=== PATIENT | male | born 1980 ===

== ENCOUNTER 2017-02-14 00:47 | Inpatient (IN) | payer MEDICAID ==
[2017-02-14 01:02] VITALS: BMI 31.9
[2017-02-14] MEDS ORDERED: Sodium Chloride 0.9% 1,000 ML IV STA (01:10)
[2017-02-14 01:30] LABS: BASO # 0.1 K/uL (0.0-0.2); BASO % 0.7 % (0.0-2.0); EOS # 0.2 K/uL (0.0-0.7); EOS % 1.5 % (0.0-4.0); HEMOGLOBIN 13.1 g/dL (12.0-18.0); LYMPH # 3.9 K/uL (1.0-4.3); LYMPH % 27.1 % (20.0-40.0); MEAN CELL VOLUME 79.6 fl (80.0-94.0); MEAN CORPUSCULAR HEMOGLOBIN 25.4 pg (27.0-31.0); MEAN CORPUSCULAR HGB CONC 31.9 g/dL (33.0-37.0); MEAN PLATELET VOLUME 8.2 fl (7.2-11.7); MONO # 1.3 K/uL (0.0-0.8); MONO % 9.1 % (0.0-10.0); NEUT # 8.9 K/uL (1.8-7.0); NEUT % 61.6 % (50.0-75.0); NRBC % 0.1 % (0.0-0.0); RBC 5.15 Mil/uL (4.40-5.90); RED CELL DISTRIBUTION WIDTH 13.7 % (11.5-14.5); WHITE BLOOD COUNT 14.5 K/uL (4.8-10.8)
--- NOTE | 2017-02-14 01:37 | ED PDOC ---
HPI: Abdomen Time Seen by Provider: 02/14/17 01:07 Chief Complaint (Nursing): Abdominal Pain Chief Complaint (Provider): nausea, vomiting, abdominal pain History Per: Patient History/Exam Limitations: no limitations Outside of [place] travel?: No Current Symptoms Are (Timing): Still Present Location Of Pain/Discomfort: RUQ, Epigastric Associated Symptoms: Nausea, Vomiting Additional History Per: Patient Additional Complaint(s): 36yo male with recent diagnosis of cholelithaisis, presents to ED with nausea, vomiting, abdominal pain for 2 hours. Patient states he ate rice, beans and pork tonight after which he experienced his symptoms. Patient reports severe abdominal pain, 2 episodes of non-bloody, non-bilious vomiting. He states the abdominal pain is 10/10, mostly in his right upper quadrant and epigastric region, worse upon inhalation. he denies any fever, cough, shortness of breath, chest pain, diarrhea. No other complaints. Past Medical History Reviewed: Historical Data, Nursing Documentation, Vital Signs Vital Signs: Last Vital Signs Temp 97.9 F 02/15/17 07:57 Pulse 82 02/15/17 07:57 Resp 19 02/15/17 07:57 BP 107/69 02/15/17 07:57 Pulse Ox 96 02/15/17 07:57 - Medical History Other PMH: cholelithiasis - Surgical History Surgical History: No Surg Hx - Family History Family History: States: No Known Family Hx - Social History Current smoker - smoking cessation education provided: No Ex-Smoker (has not smoked in the last 12 months): No Alcohol: Occasional Drugs: Denies - Immunization History Hx Tetanus Toxoid Vaccination: No Hx Influenza Vaccination: No Hx Pneumococcal Vaccination: No - Home Medications Home Medications: Ambulatory Orders Medication Instructions Recorded Ondansetron ODT [Zofran ODT] 4 mg PO TID PRN #6 odt 01/31/17 Amoxicillin/Clavulanate [Augmentin 1 tab PO Q12 #14 tab 02/15/17 875 MG-125 MG] Oxycodone HCl/Acetaminophen 1 tab PO Q4 PRN #30 tablet 02/15/17 [Percocet 7.5-325 mg Tablet] - Allergies Allergies/Adverse Reactions: Allergies Allergy/AdvReac Type Severity Reaction Status Date / Time No Known Allergies Allergy Unverified 02/14/17 01:02 Review of Systems ROS Statement: Except As Marked, All Systems Reviewed And Found Negative Constitutional: Negative for: Fever Cardiovascular: Negative for: Chest Pain Respiratory: Negative for: Cough, Shortness of Breath Gastrointestinal: Positive for: Nausea, Vomiting, Abdominal Pain. Negative for : Diarrhea Physical Exam - Reviewed Nursing Documentation Reviewed: Yes Vital Signs Reviewed: Yes - Physical Exam Appears: Positive for: Uncomfortable Head Exam: Positive for: ATRAUMATIC, NORMAL INSPECTION, NORMOCEPHALIC Skin: Positive for: Normal Color Eye Exam: Positive for: Normal appearance Neck: Positive for: Supple Cardiovascular/Chest: Positive for: Regular Rate, Rhythm Respiratory: Positive for: Normal Breath Sounds. Negative for: Respiratory Distress Gastrointestinal/Abdominal: Positive for: Soft, Tenderness (epigastric, right upper quadrant tenderness, + Vences's sign.) Back: Positive for: Normal Inspection Extremity: Positive for: Normal ROM Neurologic/Psych: Positive for: Alert, Oriented. Negative for: Motor/Sensory Deficits - Laboratory Results Result Diagrams: 02/15/17 05:30 02/15/17 05:30 - ECG O2 Sat by Pulse Oximetry: 97 (RA) Pulse Ox Interpretation: Normal Medical Decision Making Medical Decision Making: Time: 107 Impression: 36yo male with right upper quadrant tenderness and pain, nausea and vomiting in setting of known cholelithiasis Plan: -- CT Abdomen and Pelvis w/ IV Contrast -- IV FLuids -- Pepcid -- Toradol -- Zofran Reassess Time: 224 CT Abdomen IMPRESSION: Cholelithiasis, distended gallbladder, and small amount of adjacent fluid. Findings concerning for cholecystitis. Additional imaging with ultrasound or HIDA could be performed. Time: 242 Patient to be admitted under medicine associate professor of education, Dr. Ramírez for acute cholecystitis. Scribe Attestation: Documented by Zeenat Márquez acting as a scribe for Arthur Grady MD. Provider Attestation: All medical record entries made by the Scribe were at my direction and personally dictated by me. I have reviewed the chart and agree that the record accurately reflects my personal performance of the history, physical exam, medical decision making, and the department course for this patient. I have also personally directed, reviewed, and agree with the discharge instructions and disposition. Disposition - Clinical Impression Clinical Impression: Cholelithiasis - Patient ED Disposition Is Patient to be Admitted: Yes - Disposition Disposition Time: 02:44 Condition: STABLE
[2017-02-14 01:38] LABS: ALBUMIN 4.6 g/dL (3.5-5.0); ALT/SGPT 51 U/L (21-72); AST/SGOT 29 U/L (17-59); BLOOD UREA NITROGEN 21 mg/dl (9-20); CALCIUM 9.8 mg/dL (8.4-10.2); GFR AFRICAN-AMERICAN > 60; GFR NON-AFRICAN AMERICAN > 60; LIPASE 83 U/L (23-300)
[2017-02-14 01:39] LABS: ALB/GLOB RATIO 1.3 (1.0-2.1)
[2017-02-14] MEDS ORDERED: Sodium Chloride 0.9% 50 ML IV ONE (01:44)
[2017-02-14] MEDS ORDERED: Iohexol 300 100 ML IJ ONE (01:44)
--- NOTE | 2017-02-14 02:25 | CT ---
EXAM: CT Abdomen and Pelvis With Intravenous Contrast EXAM DATE/TIME: 02/14/2017 1:15 AM CLINICAL HISTORY: 36 years old, male; Pain; Abdominal pain; Localized; Right upper quadrant (ruq); Additional info: HX gall stones/pain TECHNIQUE: Axial computed tomography images of the abdomen and pelvis with intravenous contrast. All CT scans at this facility use one or more dose reduction techniques, viz.: automated exposure control; ma/kV adjustment per patient size (including targeted exams where dose is matched to indication; i.e. head); or iterative reconstruction technique. Coronal and sagittal reformatted images were created and reviewed. CONTRAST: 95 mL of [id number] administered intravenously. COMPARISON: No relevant prior studies available. FINDINGS: The gallbladder is dilated and there is a small amount of pericholecystic fluid. There are tiny areas of low attenuation in the gallbladder presumably nitrogen gallstones. The liver is normal. The spleen is normal. The pancreas is normal. No hydronephrosis or perinephric stranding. The bowel appears normal. A normal appendix is identified axial images 52 through 61, coronal images 56 through 60. IMPRESSION: Cholelithiasis, distended gallbladder, and small amount of adjacent fluid. Findings concerning for cholecystitis. Additional imaging with ultrasound or HIDA could be performed.
[2017-02-14] MEDS ORDERED: Piperacillin/Tazobact 3.375 GM in Sodium Chloride 0.9% 100 ML IV STA (02:28)
--- NOTE | 2017-02-14 02:56 | CP.PCM.HP ---
History of Present Illness - History of Present Illness History of Present Illness: PCP: None Chief Complaint: Abdominal Pain The Patient was seen and examined in the Ed HPI: 36 years old male with hx of Cholelithiasis Dx 2 weeks ago comes with 2 days of worsening RUQ pain radiating down to the RLQ and across to the LUQ and right back increasing after eating. The intensity was 10/10 and associated with nausea, vomits. No fever, cough, SOB, diarrhea nor urinary symptoms PMH: Cholelithiasis PSH: Denies SH: No illegal drug use; Smokes 2 packs in one week; Uses Alcohol socially FH: States: No Known Family Hx Allergies: NKDA Medication: Reviewed Present on Admission - Present on Admission Any Indicators Present on Admission: No History of DVT/PE: No History of Uncontrolled Diabetes: No Urinary Catheter: No Decubitus Ulcer Present: No Review of Systems - Constitutional Constitutional: absent: Anorexia, Fatigue, Fever, Headache, Sleep Apnea - EENT Eyes: absent: Diplopia, Floaters, Itchy Eyes, Loss of Peripheral Vision, Requires Corrective Lenses Ears: absent: Decreased Hearing, Ear Discharge, Other Nose/Mouth/Throat: absent: Epistaxis, Nasal Congestion, Nasal Discharge, Sinus Pain, Sinus Pressure - Cardiovascular Cardiovascular: absent: Chest Pain, Dyspnea, Edema - Respiratory Respiratory: absent: Cough, Dyspnea, Excessive Mucous Production - Gastrointestinal Gastrointestinal: Abdominal Pain, Nausea, Vomiting. absent: Bloating, Constipation, Diarrhea, Melena - Genitourinary Genitourinary: absent: Change in Urinary Stream, Dysuria, Flank Pain, Hematuria - Musculoskeletal Musculoskeletal: absent: Arthralgias, Back Pain, Muscle Cramps - Integumentary Integumentary: Pruritus, Rash, Skin Ulcer, Sores, Striae, Swelling - Neurological Neurological: absent: Confusion, Focal Weakness, Loss of Vision, Weakness - Psychiatric Psychiatric: absent: Anxiety, Depression, Panic Attacks - Endocrine Endocrine: absent: Palpitations, Polydipsia, Polyphagia, Polyuria - Hematologic/Lymphatic Hematologic: absent: Easy Bleeding, Easy Bruising Past Patient History - Past Social History Smoking Status: Current Some Days Smoker Chewing Tobacco Use: No Cigar Use: No Alcohol: Occasional Drugs: Denies - CARDIAC Hx Cardiac Disorders: No - PULMONARY Hx Respiratory Disorders: No - NEUROLOGICAL Hx Neurological Disorder: No - HEENT Hx HEENT Problems: No - RENAL Hx Chronic Kidney Disease: No - ENDOCRINE/METABOLIC Hx Endocrine Disorders: No - HEMATOLOGICAL/ONCOLOGICAL Hx Blood Disorders: No - INTEGUMENTARY Hx Dermatological Problems: No - MUSCULOSKELETAL/RHEUMATOLOGICAL Hx Musculoskeletal Disorders: No - GASTROINTESTINAL Hx Gastrointestinal Disorders: Yes Other/Comment: Cholelithiasis - PSYCHIATRIC Hx Psychophysiologic Disorder: No Hx Substance Use: No - SURGICAL HISTORY Hx Surgeries: No Meds Allergies/Adverse Reactions: Allergies Allergy/AdvReac Type Severity Reaction Status Date / Time No Known Allergies Allergy Unverified 02/14/17 01:02 Physical Exam - Constitutional Appears: No Acute Distress - Head Exam Head Exam: ATRAUMATIC, NORMAL INSPECTION, NORMOCEPHALIC - Eye Exam Eye Exam: EOMI, Normal appearance Pupil Exam: NORMAL ACCOMODATION, PERRL - ENT Exam ENT Exam: Mucous Membranes Moist, Normal Exam, Normal External Ear Exam - Neck Exam Neck exam: Positive for: Full Rom, Normal Inspection. Negative for: Lymphadenopathy, Tenderness - Respiratory Exam Respiratory Exam: Clear to Auscultation Bilateral. absent: Rales, Rhonchi, Wheezes - Cardiovascular Exam Cardiovascular Exam: REGULAR RHYTHM, RRR, +S1, +S2. absent: Gallop, JVD - GI/Abdominal Exam Additional comments: Full, Soft, +ve bowel sounds, tender at Epigastrium, RUQ and RLQ, No guarding nor rebound tenderness. - Rectal Exam Rectal Exam: Deferred - Extremities Exam Extremities exam: Positive for: full ROM, normal inspection. Negative for: calf tenderness, pedal edema - Back Exam Back exam: NORMAL INSPECTION. absent: CVA tenderness (L), CVA tenderness (R) - Neurological Exam Neurological exam: Alert, CN II-XII Intact, Oriented x3, Reflexes Normal - Psychiatric Exam Psychiatric exam: Normal Affect, Normal Mood - Skin Skin Exam: Dry, Intact, Normal Color, Warm Results - Vital Signs Recent Vital Signs: Last Vital Signs Temp 98.9 F 02/14/17 01:02 Pulse 78 02/14/17 01:02 Resp 16 02/14/17 01:02 BP 141/87 02/14/17 01:02 Pulse Ox 97 02/14/17 02:44 - Labs Result Diagrams: 02/14/17 01:27 02/14/17 01:27 Labs: Laboratory Results - last 24 hr 02/14/17 02/14/17 01:27 01:27 WBC 14.5 H RBC 5.15 Hgb 13.1 Hct 41.0 MCV 79.6 L MCH 25.4 L MCHC 31.9 L RDW 13.7 Plt Count 291 MPV 8.2 Neut % (Auto) 61.6 Lymph % (Auto) 27.1 [place] % (Auto) 9.1 Eos % (Auto) 1.5 Baso % (Auto) 0.7 Neut # 8.9 H Lymph # 3.9 [place] # 1.3 H Eos # 0.2 Baso # 0.1 Sodium 146 Potassium 4.3 Chloride 105 Carbon Dioxide 28 Anion Gap 17 BUN 21 H Creatinine 1.2 Est GFR ( Amer) > 60 Est GFR (Non-Af Amer) > 60 Random Glucose 126 H Calcium 9.8 Total Bilirubin 0.3 AST 29 ALT 51 Alkaline Phosphatase 79 Total Protein 8.3 H Albumin 4.6 Globulin 3.6 Albumin/Globulin Ratio 1.3 Lipase 83 - Imaging and Cardiology CT scan - abdomen Status: Report reviewed by me Additional comment: FINDINGS: The gallbladder is dilated and there is a small amount of pericholecystic fluid. There are tiny areas of low attenuation in the gallbladder presumably nitrogen gallstones. The liver is normal. The spleen is normal. The pancreas is normal. No hydronephrosis or perinephric stranding. The bowel appears normal. A normal appendix is identified axial images 52 through 61, coronal images 56 through 60. IMPRESSION: Cholelithiasis, distended gallbladder, and small amount of adjacent fluid. Findings concerning for cholecystitis. Additional imaging with ultrasound or HIDA could be performed. Assessment & Plan - Assessment and Plan (Free Text) Assessment: #. Acute cholecystitis #. Cholelithiasis #. Leukocytosis #. Dehydration Plan: 36 years old male with hx of Cholelithiasis Dx 2 weeks ago comes with 2 days of worsening RUQ pain radiating down to the RLQ and across to the LUQ and right back increasing after eating. The intensity was 10/10 and associated with nausea , vomits. No fever, cough, SOB, diarrhea nor urinary symptoms #. Acute cholecystitis with Cholelithiasis and biliary colic - Consult Dr Mukherjee general Surgeon - Hida scan - Zosyn - IV Fluids NS at 125/hr - Pain management with Toradol #. Leukocytosis secondary to the Cholecystitis - follow WBC #. Dehydration - IV fluids - follow Renal Labs #. Stress ulcer Prophylaxis with Pepcid #. DVT prophylaxis with SCD #. Code Status: Full - Date & Time Date: 02/14/17 Time: 02:56
[2017-02-14] MEDS: Sodium Chloride 0.9% 1,000 ML IV SCH ×3 (03:21→19:15)
[2017-02-14 03:32] LABS: URINE BILIRUBIN NEGATIVE (NEGATIVE); URINE BLOOD NEGATIVE (NEGATIVE); URINE CLARITY CLEAR (Clear); URINE COLOR YELLOW (YELLOW); URINE GLUCOSE (UA) NEG (Normal); URINE LEUKOCYTE ESTERASE NEG Leu/uL (Negative); URINE NITRATE NEGATIVE (NEGATIVE); URINE PROTEIN NEGATIVE (NEGATIVE); URINE UROBILINOGEN 0.2-1.0 mg/dL (0.2-1.0)
--- NOTE | 2017-02-14 08:25 | CARD ---
APPROVED REPORT EKG Measurement Heart [id number] <Conclusion> Normal sinus rhythm Minimal voltage criteria for LVH, may be normal variant Borderline ECG
--- NOTE | 2017-02-14 09:54 | CP.PCM.CON ---
History of Present Illness - History of Present Illness History of Present Illness: General Surgery Dr. Mukherjee 36 y/o M w/ PMHx of cholelithiasis, diagnosed 2weeks ago, presented to the ED c/o RUQ abd pain. Pt states pain has been present, off and on after eating for the last few months. However,pain was significantly worse last evening after dinner. Pain described as achy and cramping in RUQ w/ radiation in to (R) back. Pain was so severe, pt reports pre-syncopal episode. Pt reports concurrent nausea and multiple episodes NBNB vomiting. Pt admits to recent constipation for which he took laxative. Currenly, pt reports continued, though improved pain. Pt denies F/C, N/V, D/C. PMHx: denies Meds: multivitamin NKDA PSHx: L ear cyst excision SHx: 1pack per week, occasional EtOH, denies drug use FHx: Mother - cholelithiasis Review of Systems - Review of Systems All systems: reviewed and no additional remarkable complaints except (see HPI) Past Patient History - Past Medical History & Family History Past Medical History?: Yes - Past Social History Smoking Status: Light Smoker < 10 Cigarettes Daily - CARDIAC Hx Cardiac Disorders: No - PULMONARY Hx Respiratory Disorders: No - NEUROLOGICAL Hx Neurological Disorder: No - HEENT Hx HEENT Problems: No - RENAL Hx Chronic Kidney Disease: No - ENDOCRINE/METABOLIC Hx Endocrine Disorders: No - HEMATOLOGICAL/ONCOLOGICAL Hx Blood Disorders: No Hx AIDS: No Hx Human Immunodeficiency Virus (HIV): No - INTEGUMENTARY Hx Dermatological Problems: No - MUSCULOSKELETAL/RHEUMATOLOGICAL Hx Musculoskeletal Disorders: No Hx Falls: No - GASTROINTESTINAL Hx Gastrointestinal Disorders: Yes Hx Constipation: Yes Hx Hemorrhoids: Yes (June 2016) Other/Comment: Cholelithiasis - GENITOURINARY/GYNECOLOGICAL Hx Genitourinary Disorders: No - PSYCHIATRIC Hx Psychophysiologic Disorder: No Hx Substance Use: No - SURGICAL HISTORY Hx Surgeries: Yes Other/Comment: Incision of ichthyologist behind left ear at age 17 - ANESTHESIA Hx Anesthesia: Yes Hx Anesthesia Reactions: No Hx Malignant Hyperthermia: No Has any member of the family had a problem w/ anesthesia?: No Meds Allergies/Adverse Reactions: Allergies Allergy/AdvReac Type Severity Reaction Status Date / Time No Known Allergies Allergy Unverified 02/14/17 01:02 - Medications Medications: Current Medications Famotidine (Pepcid) 20 mg IVP Q12 [facility] Sodium Chloride (Sodium Chloride 0.9%) 1,000 mls @ 125 mls/hr IV .Q8H [facility] Stop: 02/15/17 03:12 Last Admin: 02/14/17 03:21 Dose: 125 mls/hr Piperacillin Sod/Tazobactam (Sod 3.375 gm/ Sodium Chloride) 100 mls @ 100 mls/ hr IVPB Q6 [facility] PRN Reason: Protocol Ketorolac Tromethamine (Toradol) 30 mg IVP Q6 PRN PRN Reason: Pain, severe (8-10) Ketorolac Tromethamine (Toradol) 15 mg IVP Q6 PRN PRN Reason: Pain, moderate (4-7) Ondansetron HCl (Zofran Inj) 4 mg IVP Q4 PRN PRN Reason: Nausea/Vomiting Physical Exam - Constitutional Appears: Non-toxic, No Acute Distress - Head Exam Head Exam: NORMAL INSPECTION - Eye Exam Eye Exam: Normal appearance - ENT Exam ENT Exam: Mucous Membranes Moist - Respiratory Exam Respiratory Exam: NORMAL BREATHING PATTERN. absent: Accessory Muscle Use, Respiratory Distress - Cardiovascular Exam Cardiovascular Exam: absent: Bradycardia, Tachycardia - GI/Abdominal Exam GI & Abdominal Exam: Soft, Tenderness (RUQ TTP). absent: Distended, Firm, Guarding, Rebound - Extremities Exam Extremities exam: Positive for: normal inspection - Neurological Exam Neurological exam: Alert, Oriented x3 - Psychiatric Exam Psychiatric exam: Normal Affect, Normal Mood - Skin Skin Exam: Dry, Intact, Normal Color, Warm Results - Vital Signs Recent Vital Signs: Last Vital Signs Temp 97.6 F 02/14/17 08:13 Pulse 70 02/14/17 08:13 Resp 18 02/14/17 08:13 BP 114/74 02/14/17 08:13 Pulse Ox 97 02/14/17 08:13 - Labs Result Diagrams: 02/14/17 01:27 02/14/17 01:27 Labs: Laboratory Results - last 24 hr 02/14/17 02/14/17 02/14/17 01:27 01:27 02:49 WBC 14.5 H RBC 5.15 Hgb 13.1 Hct 41.0 MCV 79.6 L MCH 25.4 L MCHC 31.9 L RDW 13.7 Plt Count 291 MPV 8.2 Neut % (Auto) 61.6 Lymph % (Auto) 27.1 [place] % (Auto) 9.1 Eos % (Auto) 1.5 Baso % (Auto) 0.7 Neut # 8.9 H Lymph # 3.9 [place] # 1.3 H Eos # 0.2 Baso # 0.1 Sodium 146 Potassium 4.3 Chloride 105 Carbon Dioxide 28 Anion Gap 17 BUN 21 H Creatinine 1.2 Est GFR ( Amer) > 60 Est GFR (Non-Af Amer) > 60 Random Glucose 126 H Lactic Acid Cancelled Calcium 9.8 Total Bilirubin 0.3 AST 29 ALT 51 Alkaline Phosphatase 79 Total Protein 8.3 H Albumin 4.6 Globulin 3.6 Albumin/Globulin Ratio 1.3 Lipase 83 Urine Color Urine Clarity Urine pH Ur Specific [place] Urine Protein Urine Glucose (UA) Urine Ketones Urine Blood Urine Nitrate Urine Bilirubin Urine Urobilinogen Ur Leukocyte Esterase Urine RBC (Auto) Urine Microscopic WBC 02/14/17 02/14/17 03:09 03:20 WBC RBC Hgb Hct MCV MCH MCHC RDW Plt Count MPV Neut % (Auto) Lymph % (Auto) [place] % (Auto) Eos % (Auto) Baso % (Auto) Neut # Lymph # [place] # Eos # Baso # Sodium Potassium Chloride Carbon Dioxide Anion Gap BUN Creatinine Est GFR ( Amer) Est GFR (Non-Af Amer) Random Glucose Lactic Acid 2.1 Calcium Total Bilirubin AST ALT Alkaline Phosphatase Total Protein Albumin Globulin Albumin/Globulin Ratio Lipase Urine Color Yellow Urine Clarity Clear Urine pH 6.0 Ur Specific [place] < 1.005 Urine Protein Negative Urine Glucose (UA) Neg Urine Ketones Negative Urine Blood Negative Urine Nitrate Negative Urine Bilirubin Negative Urine Urobilinogen 0.2-1.0 Ur Leukocyte Esterase Neg Urine RBC (Auto) 2 Urine Microscopic WBC < 1 - Imaging and Cardiology CT scan - abdomen Status: Image reviewed by me, Report reviewed by me US - abdomen Status: Image reviewed by me Assessment & Plan - Assessment and Plan (Free Text) Assessment: 36 y/o M w/ acute cholecystitis - cont NPO, IVF, Abx - Abd US shows acute cholecystitis - Pt for OR today for lap enrrique Pt discussed w/ Dr. Lonny Pichardo DO PGY2
[2017-02-14] MEDS ORDERED: ceFAZolin IV 1 gm in Dextrose 0 GM/0 ML BAG IVPB ONE (10:25)
[2017-02-14] MEDS ORDERED: Bupivacaine 0.5% Inj(30mL) ONE (10:25)
[2017-02-14] MEDS: Piperacillin/Tazobact 3.375 GM in Sodium Chloride 0.9% 100 ML IVPB SCH ×3 (10:36→21:41)
[2017-02-14] MEDS ORDERED: Phenylephrine 10 mg/ml Inj ONE (10:40)
[2017-02-14] MEDS ORDERED: Lidocaine 4% (Laryng-O-Jet) Kit MM ONE (10:40)
[2017-02-14] MEDS ORDERED: Rocuronium 10 mg/ml (5 ml) ONE (10:40)
[2017-02-14] MEDS ORDERED: Propofol 10 mg/ml Inj (20 ML) ONE (10:40)
[2017-02-14] MEDS ORDERED: Succinylcholine 200 mg/10 ml Inj IV ONE (10:40)
[2017-02-14] MEDS ORDERED: Lidocaine 2% MPF (5 ml) Inj ONE (10:42)
[2017-02-14] MEDS ORDERED: Dexamethasone 4 mg/1 ml ONE (10:44)
--- NOTE | 2017-02-14 11:23 | US ---
HISTORY: RUQ pain COMPARISON: Comparison is made to the previous same-day CT of the abdomen and pelvis with contrast. TECHNIQUE: Sonographic evaluation of the abdomen. FINDINGS: LIVER: Measures 13.2 cm. Normal echogenicity of the liver parenchyma. No mass. No intrahepatic bile duct dilatation. GALLBLADDER: Multiple gallstones are noted. There is a diffuse gallbladder wall thickening. There is a trace pericholecystic fluid. Findings suspicious for acute cholecystitis COMMON BILE DUCT: Measures 2.4 mm. No stones. No dilatation. PANCREAS: Unremarkable as visualized. No mass. No ductal dilatation. RIGHT KIDNEY: Measures 9.8 x 4.8 x 6.6cm. Normal echogenicity. No calculus, mass, or hydronephrosis. LEFT KIDNEY: Measures 10.9 x 6.7 x 4.6cm. Normal echogenicity. No calculus, mass, or hydronephrosis. SPLEEN: Normal in size and contour. No mass. AORTA: No aneurysmal dilatation. IVC: Unremarkable. OTHER FINDINGS: None. IMPRESSION: Distended gallbladder contains multiple gallstones and demonstrates diffuse wall thickening surrounding with trace pericholecystic fluid. Findings suspicious for acute cholecystitis. If clinically warranted further assessment by MRCP or hepatobiliary scan may be obtained.
[2017-02-14] MEDS ORDERED: Midazolam 2 MG/2 ML VIAL ONE (11:24)
[2017-02-14] MEDS ORDERED: Lactated Ringer's 1,000 ML IV ONE ×2 (11:30→11:50)
[2017-02-14] MEDS ORDERED: Sodium Chloride 0.9% 1,000 ML IV ONE (11:30)
[2017-02-14 11:34] LABS: INR 1.1 (0.9-1.2); PROTHROMBIN TIME 12.5 Seconds (9.8-13.1)
[2017-02-14] MEDS ORDERED: Neostigmine Methylsulfate 2 MG/2 ML ML IV ONE ×2 (12:01→12:33)
[2017-02-14] MEDS ORDERED: Neostigmine Methylsulfate 3mg/3ml Syringe IV ONE (12:01)
[2017-02-14] MEDS ORDERED: HYDROmorphone 0.5 mg/0.5 ml ISec IVP PRN (13:04)
--- NOTE | 2017-02-14 13:23 | PCM.SURG1 ---
Surgeon's Initial Post Op Note - Surgeon's Notes Surgeon: Dr. Mukherjee Pharmacy Resident: Dr. Kylee Beatty PGY2 Type of Anesthesia: General Endo Pre-Operative Diagnosis: acute cholecystitis Operative Findings: see dictation Post-Operative Diagnosis: same Operation Performed: laparoscopic cholecystectomy Specimen/Specimens Removed: gallbladder Estimated Blood Loss: EBL {In ML}: 100 Post-Op Condition: Good Date of Surgery/Procedure: 02/14/17 Time of Surgery/Procedure: 11:25
[2017-02-14] MEDS: Lactated Ringer's 1,000 ML IV SCH ×2 (14:25→23:35)
[2017-02-15] MEDS ORDERED: Oxycodone/Acetaminophen 5/325 mg Tab PO PRN (00:21)
[2017-02-15] MEDS: Piperacillin/Tazobact 3.375 GM in Sodium Chloride 0.9% 100 ML IVPB SCH ×2 (04:25→09:17)
[2017-02-15 07:41] LABS: BASO % 0.3 % (0.0-2.0); EOS # 0.1 K/uL (0.0-0.7); EOS % 0.6 % (0.0-4.0); HEMOGLOBIN 11.4 g/dL (12.0-18.0); LYMPH # 2.5 K/uL (1.0-4.3); LYMPH % 15.9 % (20.0-40.0); MEAN CELL VOLUME 79.4 fl (80.0-94.0); MEAN CORPUSCULAR HEMOGLOBIN 25.5 pg (27.0-31.0); MEAN CORPUSCULAR HGB CONC 32.1 g/dL (33.0-37.0); MEAN PLATELET VOLUME 8.9 fl (7.2-11.7); MONO # 1.1 K/uL (0.0-0.8); MONO % 7.2 % (0.0-10.0); RBC 4.45 Mil/uL (4.40-5.90); RED CELL DISTRIBUTION WIDTH 13.8 % (11.5-14.5); WHITE BLOOD COUNT 15.8 K/uL (4.8-10.8)
[2017-02-15 07:58] VITALS: BP 107/69; PULSE 82; RESP 19; TEMP 97.9
[2017-02-15 07:58] LABS: BLOOD UREA NITROGEN 17 mg/dl (9-20); CALCIUM 8.7 mg/dL (8.4-10.2); GFR AFRICAN-AMERICAN > 60; GFR NON-AFRICAN AMERICAN > 60
--- NOTE | 2017-02-15 08:40 | CP.PCM.DIS ---
Provider - Provider Date of Admission: 02/14/17 02:37 Attending physician: Lino Ramírez Primary care physician: none Consults: Surgery consult Time Spent in preparation of Discharge (in minutes): 15 Hospital Course - Lab Results Lab Results: Micro Results 02/14/17 03:04 Blood Blood Culture - Preliminary NO GROWTH AFTER 24 HOURS Most Recent Lab Values WBC 15.8 K/uL (4.8-10.8) H 02/15/17 05:30 RBC 4.45 Mil/uL (4.40-5.90) 02/15/17 05:30 Hgb 11.4 g/dL (12.0-18.0) L 02/15/17 05:30 Hct 35.3 % (35.0-51.0) 02/15/17 05:30 MCV 79.4 fl (80.0-94.0) L 02/15/17 05:30 MCH 25.5 pg (27.0-31.0) L 02/15/17 05:30 MCHC 32.1 g/dL (33.0-37.0) L 02/15/17 05:30 RDW 13.8 % (11.5-14.5) 02/15/17 05:30 Plt Count 248 K/uL (130-400) 02/15/17 05:30 MPV 8.9 fl (7.2-11.7) 02/15/17 05:30 Neut % (Auto) 76.0 % (50.0-75.0) H 02/15/17 05:30 Lymph % (Auto) 15.9 % (20.0-40.0) L 02/15/17 05:30 [place] % (Auto) 7.2 % (0.0-10.0) 02/15/17 05:30 Eos % (Auto) 0.6 % (0.0-4.0) 02/15/17 05:30 Baso % (Auto) 0.3 % (0.0-2.0) 02/15/17 05:30 Neut # 12.0 K/uL (1.8-7.0) H 02/15/17 05:30 Lymph # 2.5 K/uL (1.0-4.3) 02/15/17 05:30 [place] # 1.1 K/uL (0.0-0.8) H 02/15/17 05:30 Eos # 0.1 K/uL (0.0-0.7) 02/15/17 05:30 Baso # 0.0 K/uL (0.0-0.2) 02/15/17 05:30 PT 12.5 Seconds (9.8-13.1) 02/14/17 11: INR 1.1 (0.9-1.2) 02/14/17 11: APTT 34.3 Seconds (25.6-37.1) 02/14/17 11: Sodium 141 mmol/l (132-148) 02/15/17 05:30 Potassium 4.0 MMOL/L (3.6-5.0) 02/15/17 05:30 Chloride 107 mmol/L (98-107) 02/15/17 05:30 Carbon Dioxide 28 mmol/L (22-30) 02/15/17 05:30 Anion Gap 10 (10-20) 02/15/17 05:30 BUN 17 mg/dl (9-20) 02/15/17 05:30 Creatinine 1.1 mg/dl (0.8-1.5) 02/15/17 05:30 Est GFR ( Amer) > 60 02/15/17 05:30 Est GFR (Non-Af Amer) > 60 02/15/17 05:30 Random Glucose 128 mg/dL (75-110) H 02/15/17 05:30 Lactic Acid 2.1 MMOL/L (0.7-2.1) 02/14/17 03:09 Calcium 8.7 mg/dL (8.4-10.2) 02/15/17 05:30 Total Bilirubin 0.3 mg/dl (0.2-1.3) 02/14/17 01:27 AST 29 U/L (17-59) 02/14/17 01:27 ALT 51 U/L (21-72) 02/14/17 01:27 Alkaline Phosphatase 79 U/L (38-126) 02/14/17 01:27 Total Protein 8.3 G/DL (6.3-8.2) H 02/14/17 01:27 Albumin 4.6 g/dL (3.5-5.0) 02/14/17 01:27 Globulin 3.6 gm/dL (2.2-3.9) 02/14/17 01:27 Albumin/Globulin Ratio 1.3 (1.0-2.1) 02/14/17 01:27 Lipase 83 U/L (23-300) 02/14/17 01:27 Urine Color Yellow (YELLOW) 02/14/17 03:20 Urine Clarity Clear (Clear) 02/14/17 03:20 Urine pH 6.0 (5.0-8.0) 02/14/17 03:20 Ur Specific [place] < 1.005 (1.003-1.030) 02/14/17 03:20 Urine Protein Negative mg/dL (NEGATIVE) 02/14/17 03:20 Urine Glucose (UA) Neg mg/dL (Normal) 02/14/17 03:20 Urine Ketones Negative mg/dL (NEGATIVE) 02/14/17 03:20 Urine Blood Negative (NEGATIVE) 02/14/17 03:20 Urine Nitrate Negative (NEGATIVE) 02/14/17 03:20 Urine Bilirubin Negative (NEGATIVE) 02/14/17 03:20 Urine Urobilinogen 0.2-1.0 mg/dL (0.2-1.0) 02/14/17 03:20 Ur Leukocyte Esterase Neg [place]/uL (Negative) 02/14/17 03:20 Urine RBC (Auto) 2 /hpf (0-3) 02/14/17 03:20 Urine Microscopic WBC < 1 /hpf (0-5) 02/14/17 03:20 - Hospital Course Hospital Course: 36 years old male with hx of Cholelithiasis Dx 2 weeks ago came in with 2 days of worsening RUQ pain radiating down to the RLQ and across to the LUQ and right back increasing after eating. The intensity was 10/10 and associated with nausea, vomits. No fever, cough, SOB, diarrhea nor urinary symptoms. Patient had a WBC elevated 14 K. Abdominal US showed Cholelithiasis, distended gallbladder, and small amount of adjacent fluid. Findings concerning for cholecystitis. Abd US showed ;Distended gallbladder contains multiple gallstones and demonstrates diffuse wall thickening surrounding with trace pericholecystic fluid. Findings suspicious for acute cholecystitis Patient was admitted with diagnosis of acute cholecystitis started on IV Zosyn, IVF , pain medication and kept NPO. Surgery was consulted and patient taken to OR . He underwent laparascopic Cholecystectomy. Post op doing well, tolerating PO intake, hemodynamically stable, afebrile ,pain resolved. Discussed with surgery.Will discharge patient home on PO Augmentin for 1 week and Percoset PRN for pain. Patient informed on side effects of Percoset like drowsiness, sedation and advised to avoid driving or operating heavy machinery. He will follow up with Dr. Wilkins in 1 week for post op follow up . 1. Acute cholecystitis with Cholelithiasis and biliary colic 2. s/p laparascopic cholecystectomy 3. Leukocytosis secondary to the Cholecystitis 4. Dehydration- given IVF , resolved Discharge Exam - Head Exam Head Exam: ATRAUMATIC, NORMAL INSPECTION, NORMOCEPHALIC - Eye Exam Eye Exam: EOMI, Normal appearance, PERRL Pupil Exam: NORMAL ACCOMODATION - ENT Exam ENT Exam: Mucous Membranes Moist, Normal Exam - Neck Exam Neck exam: Full Rom, Normal Inspection - Respiratory Exam Respiratory Exam: Clear to PA & Lateral, NORMAL BREATHING PATTERN. absent: Rales, Rhonchi, Wheezes - Cardiovascular Exam Cardiovascular Exam: REGULAR RHYTHM, RRR, +S1, +S2. absent: JVD - GI/Abdominal Exam GI & Abdominal Exam: Normal Bowel Sounds, Soft. absent: Distended, Guarding, Hernia, Rigid, Tenderness - Rectal Exam Rectal Exam: Deferred - Extremities Exam Extremities exam: normal capillary refill, normal inspection, pedal pulses present - Back Exam Back exam: NORMAL INSPECTION - Neurological Exam Neurological exam: Alert, CN II-XII Intact, Oriented x3, Reflexes Normal - Psychiatric Exam Psychiatric exam: Normal Affect, Normal Mood - Skin Skin Exam: Dry, Intact, Normal Color, Warm Discharge Plan - Discharge Medications Prescriptions: Amoxicillin/Clavulanate [Augmentin 875 MG-125 MG] 1 tab PO Q12 #14 tab Oxycodone HCl/Acetaminophen [Percocet 7.5-325 mg Tablet] 1 tab PO Q4 PRN #30 tablet PRN Reason: Pain, Severe (8-10) - Follow Up Plan Condition: STABLE Disposition: HOME/ ROUTINE Patient education suggested?: Yes Instructions: Laparoscopic Cholecystectomy (DC) Referrals: Jareth Mukherjee MD [Staff Provider] -
[2017-02-15] MEDS ORDERED: Influenza Vaccine 18yr & older 0.5 ML/45 MCG SYR IM ONE (09:06)
[2017-02-15] MEDS ORDERED: Pneumococcal 23-Valent Vaccine IM ONE (09:06)
--- NOTE | 2017-02-15 09:14 | CP.PCM.PCO ---
Physician Communication Note - Physician Communication Note Physician Communication Note: pt clear for d/c
[2017-02-15] MEDS: Lactated Ringer's 1,000 ML IV SCH (10:38)
[2017-02-16 01:49] VITALS: O2SAT 97
--- NOTE | 2017-03-26 14:39 | OP ---
PROCEDURE DATE: 02/14/2017 OPERATION PERFORMED: Laparoscopic cholecystectomy. SURGEON; Jareth Mukherjee MD. PET CAREGIVER: Dr. Tuttle and . ANESTHESIA: General anesthesia. PREOPERATIVE DIAGNOSIS: Acute cholecystitis. POSTOPERATIVE DIAGNOSIS: Acute cholecystitis. OPERATIVE FINDINGS: Cystic duct, cystic artery, critical view obtained. ESTIMATED BLOOD LOSS: Minimal. OPERATIVE PROCEDURE: As follows: The patient was taken to the operating room and placed supine on the operating room table. After induction of general anesthesia, the abdomen was prepped and draped in a standard surgical fashion. A Veress needle was inserted into the abdomen through the umbilicus. The abdomen was insufflated. Once sufficient CO2 was entered into the abdomen, a 10-mm trocar was placed through the umbilicus and a diagnostic laparoscopy was performed. The patient was then placed into the reversed Trendelenburg left side down position and the subxiphoid and two right-sided trocars were placed under direct vision. The gallbladder was grasped from the fundus and pulled upwards and the neck of the gallbladder was pulled outwards exposing the triangle of [place]. Blunt dissection with a [place] dissector was used to isolate the contents of the triangle of [place]. Once the contents of the triangle were isolated, the cystic duct was identified and seen to be entering the gallbladder. The cystic duct was then clipped and divided. The cystic artery was then encircled clipped and divided in a similar fashion. The gallbladder was then taken off the gallbladder fossa using the electrocautery. Once the gallbladder was off the gallbladder fossa, it was placed into an EndoCatch bag. The right upper quadrant was copiously irrigated. The gallbladder fossa was checked for bleeding. There was no evidence of bleeding. The irrigant was removed. The gallbladder was then removed via the umbilical trocar site. The trocars were then removed under direct vision. The umbilical trocar site was closed using #0 Vicryl. The skin incisions were closed using #4-0 Monocryl and the patient had 10 mL of 1% Marcaine infiltrated into all the wounds. The patient tolerated the procedure well. There were no complications. The sponge, instrument, and needle counts were correct at the end of the case. POSTOPERATIVE CONDITION: The patient was then awakened from general anesthesia, transported to the recovery room in satisfactory condition. Jareth Mukherjee MD [facility] # [id number]
== END 2017-02-15 11:28 | disposition home or self-care (01) | DRG 493 ==
LOC: H.ER 00:47 → H.ERHOLD 02:37 → H.MEDSURG1 04:35
PROVIDERS: ADMIT Internal Medicine; ATTEND Internal Medicine
PROC: 0FT44ZZ Resection of Gallbladder, Percutaneous Endoscopic Approach (ICD-10-PCS; principal; 2017-02-14 12:00)
DX: K80.00 Calculus of gallbladder with acute cholecystitis without obstruction (principal); E86.0 Dehydration; Z87.891 Personal history of nicotine dependence; K59.00 Constipation, unspecified